=== PATIENT | female | born 1995 | race Caucasian/White ===

== ENCOUNTER 2019-02-11 16:11 | Observation (INO) ==
[2019-02-11 17:01] LABS: Bilirubin,Urine Negative (Negative); Blood,Urine Negative (Negative); Clarity,Urine Cloudy (Clear); Color,Urine Yellow (Yellow); Glucose,Urine (UA) Normal (Normal); Ketones,Urine Negative (Negative); Leukocyte Esterase,Urine Negative (Negative); Nitrite,Urine Negative (Negative); Protein,Urine Negative (Neg-Trace); Specific Gravity,Urine 1.016 (1.010-1.025); Urobilinogen,Urine Normal (Normal)
--- NOTE | 2019-02-11 17:03 | Emergency Department Note ---
Disposition Clinical Impression: Ectopic Disposition: Admitted As Inpatient Condition: Fair Forms: ED Satisfaction Letter, Work/School Release Time of Disposition: 17:03 Female Urogenital HPI - General Chief complaint: ED Abdominal Pain Stated complaint: Ectopic+ Dr. Bhatt Time Seen by Provider: 02/11/19 16:55 Source: patient Limitations: no limitations Nursing Notes Reviewed: Yes Vital Signs Reviewed: Yes - History of Present Illness HPI Narrative: Patient states that she is here because she has an ectopic and was sent to the ER to be admitted although she thinks that maybe she was just supposed to go directly upstairs to surgery but was told that she should go to the ER in case something bad happened. She denies any symptoms currently she states that she is being followed by OB for some spotting in early , and quantitative hCG levels that have not been going up like they are supposed to and today she had an ultrasound in the office which showed a ectopic and was sent here for surgery. - Related Data Home Medications Medication Instructions Recorded Confirmed No Known Home Drugs 02/11/19 02/11/19 Allergies Allergy/AdvReac Type Severity Reaction Status Date / Time No Known Allergies Allergy Verified 02/11/19 16:13 All systems ED: reviewed and negative except as stated. Past Medical History - Past Medical History Medical history: Reports: no medical history Surgical history: Reports: other Psychiatric history: Reports: no psych history - Social History Smoking Status: Current every day smoker Smokeless Tobacco Status: No Alcohol use: Reports: none Drug use: Reports: none Physical Exam - General Limitations: no limitations General appearance: alert, in no apparent distress - Head Head exam: atraumatic - Other Other exam information: A brief cursory examination shows the patient be sitting upright in the bed smiling talking with her significant other with the nursing staff with no chief complaints, vital signs were reviewed and are within acceptable limits. Neurologic exam was nonfocal, moving all 4 extremities spontaneous a normal speech. No complaints. Course Vital Signs Temperature 98.9 F 02/11/19 16:13 Pulse Rate 60 02/11/19 16:13 Respiratory Rate 15 02/11/19 16:13 Blood Pressure 129/81 02/11/19 16:13 O2 Sat by Pulse Oximetry 98 02/11/19 16:13 Temperature 98.9 F 02/11/19 16:13 Pulse Rate 60 02/11/19 16:13 Respiratory Rate 15 02/11/19 16:13 Blood Pressure 129/81 02/11/19 16:13 O2 Sat by Pulse Oximetry 98 02/11/19 16:13 Oxygen Delivery Oxygen Delivery Room Air Urogenital-Female - MDM Narrative Medical decision making narrative: I was able to review this patient's chart, she has documentation from [facility] from today that did show a ultrasound with a right-sided ectopic without any evidence of rupture, the charting from Dr. Bhatt states that he specifically spoke with the inpatient [facility] doctor Evon, who accepted this patient for direct admission, and it is unclear as to why the patient ended up in the emergency department. The patient states that she just came here because she was told to come here in case something bad happened on her way in. She has no current symptoms. We did place an IV, I spoke with Namita Mello nurse practitioner, who states that this patient can be sent directly to , and they will take care of the patient. Basic laboratory studies were sent. Patient taken to for further management. Please note very limited examination was performed as the patient was hemodynamically normal, with no acute complaints and I was able to review her chart, and contact OB who has accepted this patient already as direct admission.
[2019-02-11 17:05] LABS: Bacteria,Urine None Seen per hpf (None-Few); Hyaline Casts,Urine None Seen per lpf (None-Few); RBC,Urine 0-3 per hpf (0-3); Squamous Epithelial Cell,Urine None Seen per lpf (None-Few); WBC,Urine 0-3 per hpf (0-3)
[2019-02-11 17:10] LABS: White Blood Count 6.5 K/mcL (4.3-11.1)
[2019-02-11 17:11] LABS: Basophils % 0.3 %; Eosinophils # 0.1 K/mcL (0.0-0.6); Eosinophils % 2.1 %; Hematocrit 38.9 % (35.3-44.9); Immature Granulocytes % 0.3 % (0-4); Lymphocytes # 1.8 K/mcL (0.6-4.6); Lymphocytes % 28.1 %; Mean Corpuscular HGB Conc 33.4 g/dL (31.6-35.5); Mean Corpuscular Hemoglobin 29.3 pg (28.0-33.3); Mean Corpuscular Volume 87.8 fL (83.0-100.0); Mean Platelet Volume 9.4 fL (9.4-12.4); Monocytes # 0.5 K/mcL (0.0-1.3); Monocytes % 8.3 %; Platelet Count 228 K/mcL (140-400); Red Blood Count 4.43 M/mcL (3.82-4.97); Red Cell Distribution Width 11.9 % (11.5-14.5); Segmented Neutrophils % 60.9 %
[2019-02-11 17:28] LABS: BUN/Creatinine Ratio 18 (6-26); Blood Urea Nitrogen 10 mg/dL (6-20); Calcium 9.5 mg/dL (8.6-10.3); Carbon Dioxide 24 mEq/L (23-29); Chloride 107 mEq/L (98-107); Glucose 91 mg/dL (70-105); Osmolality,Calculated 285 (280-300); Potassium 4.1 mEq/L (3.5-5.1); Sodium 138 mEq/L (136-145); eGFR For African Americans > 60 (> 60); eGFR For Non-African Americans > 60 (> 60)
[2019-02-11] MEDS ORDERED: Acetaminophen 325 MG TABLET PO PRN (17:57)
[2019-02-11] MEDS ORDERED: Ringers Solution, Lactated 1,000 ML IVC SCH (18:00)
--- NOTE | 2019-02-11 18:01 | OB/GYN History & Physical ---
Date of Encounter: 02/11/19 Time of Encounter: 17:58 Assessment and Plan (1) Ectopic Current visit: Yes Status: Acute Patient will be made nothing by mouth after midnight for surgical intervention a.m. Qualifiers: Location of ectopic : tubal Intrauterine status: without intrauterine Laterality: right Qualified Code(s): O00.101 - Right tubal without intrauterine History of Present Illness HPI: Ms. Lilly is a 23 year old female 3 para 2 unknown last missed her period was sent in from the office secondary to right ectopic identified during an ultrasound today. Patient's had 3 positive test at home and had some bleeding her quantitative hCGs initially went up and started to come down they had a come in for viability ultrasound. Ultrasound today shows for this is to be a pseudo-sac within the endometrium with irregular contour however within the right adnexa appears to be an ectopic with a pole measuring out at 6 weeks and 5 days no cardiac activity noted. Patient is asymptomatic is having no pain no bleeding no cramping. Case was discussed with Dr. Argueta who recommended patient be admitted for observation and schedule for a laparoscopic surgery tomorrow. Patient to get some blood work because she came to the emergency room she is also stable as is her vitals. Did inform the patient we will go ahead and let her eat since she is asymptomatic nothing to eat or drink after midnight if she becomes symptomatically the night we will do the surgery tonight. Past Med Surg Social Fam HX - Past Medical History Source: patient, old records reviewed Medical history: no medical history Additional medical history: History of hyperprolactinemia Psychiatric history: no psych history - Past Surgical History Surgical History: other Additional surgical history: wisdom teeth - Social History Smoking Status: Current every day smoker Smokeless Tobacco Status: No Alcohol use: none Drug use: none Occupational status: employed Current living situation: Home - Independent Activity Level: Independent ambulation Recent Out of Country Travel Within the Last 8 Weeks: No Exposure or Possible Exposure to Illness During Travel: No - Family History Father Family Member Ethnicity: Non- Living Status: Hx Family Cardiac Disorders: No Hx Family Respiratory Disorders: No Hx Family Cancer: Yes Hx Family GI Disorders: No Hx Family Endocrine Disorder: No Hx Family Neuromuscular Disorders: No Hx Family Neurologic Disorders: No Hx Family HEENT Disorders: No Hx Family Autoimmune Disorders: No - Additional Family History Additional family history: Family history noncontributory Obstetrical History - Pregnancies : 3 Para: 2 Term: 2 Livin Medications and Allergies No Known Home Drugs 02/11/19 [History] Allergy/AdvReac Type Severity Reaction Status Date / Time No Known Allergies Allergy Verified 02/11/19 16:13 Review of System OB All systems PM: reviewed and no additional remarkable complaints except as state d Exam - Vital Signs Vital signs: Initial Vital Signs Temp Pulse Resp BP Pulse Ox 98.9 F 60 15 129/81 98 02/11/19 16:13 02/11/19 16:13 02/11/19 16:13 02/11/19 16:13 02/11/19 16:13 - Constitutional Constitutional: well developed, well nourished, no acute distress, average body habitus - HEENT HEENT: EOMI, PERRL, Mucus Membranes Moist - Neck Neck exam: full ROM - Lungs Respiratory exam: CTAB - Cardiovascular Cardiovascular exam: RRR - Abdomen Abdomen: Present: bowel sounds normal (abd nontender to palpation no rebound tenderness no guarding) Results Result Diagrams: 02/11/19 16:46 02/11/19 16:46 Abnormal lab results Creatinine 0.57 mg/dL (0.60-1.20) L 02/11/19 16:46 Beta HCG, Quant 9973 mIU/mL (Less than 5) H 02/11/19 16:46 Urine Clarity Cloudy (Clear) A 02/11/19 16:42 All other labs normal. - VTE Reasons for not Prescribing Prophylaxis: Treatment not Indicated - Low risk for VTE
[2019-02-12] MEDS ORDERED: Bupivacaine/EPI 1:200k 0.25%PF 10 ML VIAL INFILT ONE (16:06)
[2019-02-12] MEDS ORDERED: *HR* FentaNYL (PF) 100 MCG/2 ML VIAL ONE (16:16)
[2019-02-12] MEDS ORDERED: *HR* Rocuronium Bromide 50 MG/5 ML VIAL ONE (16:16)
[2019-02-12] MEDS ORDERED: Lidocaine -MPF 2% 2 ML VIAL ONE (16:16)
[2019-02-12] MEDS ORDERED: *HR* Midazolam HCl 2 MG/2 ML VIAL ONE (16:16)
[2019-02-12] MEDS ORDERED: *HR* Succinylcholine 200 MG/10 ML VIAL IVP ONE (16:16)
[2019-02-12] MEDS ORDERED: *HR* Propofol 200 MG/20 ML VIAL IVP ONE (16:17)
[2019-02-12] MEDS ORDERED: Dexamethasone 4 MG/ML VIAL ONE (16:19)
[2019-02-12] MEDS ORDERED: Ondansetron 4 MG/2 ML VIAL ONE (16:19)
--- NOTE | 2019-02-12 16:21 | Anesthesia Evaluation PreOp ---
Date of Encounter: 02/12/19 Time of Encounter: 16:20 - Past History Planned Operation: R-salpingectomy re: ectopic Cardiac History: Denies any Significant Hx Pulmonary History: Smoker INSURANCE OFFICE SUPERVISOR History: Denies Any Significant HX Other Medical History: Denies Any Significant HX Anesthesia History: No Prior Anesthetic Complications, Past Anesthesia : Yes Test: Positive (Non-viable ectopic R-salpinx confirmed by U/s) Alcohol Use: none Drug use: none Medications and Allergies No Known Home Drugs 02/11/19 [History] Allergy/AdvReac Type Severity Reaction Status Date / Time No Known Allergies Allergy Verified 02/11/19 16:13 - Meds/Allergy Pre-op Review Medications Reviewed: Yes Allergies Reviewed: Yes Beta Blockers on Current Med List: No Anesthesia Results - Labs 02/11/19 16:46 02/11/19 16:46 Anesthesia Exam Vital Signs Temp Pulse Pulse Resp BP Pulse Ox 02/12/19 16:04 98.4 F 61 60 16 103/59 100 02/12/19 08:31 98.3 F 76 16 108/77 98 02/12/19 07:56 16 02/12/19 05:50 98.4 F 67 15 92/54 98 02/11/19 20:00 98.2 F 76 14 121/65 99 02/11/19 18:07 16 02/11/19 17:29 99.2 F 79 14 111/69 99 Intake and Output 02/12/19 02/12/19 02/12/19 07:59 15:59 23:59 Output Total 1000 / 2650 800 / 2650 850 / 2650 Balance -1000 / -2650 -800 / -2650 -850 / -2650 Output: Urine 1000 / 2650 800 / 2650 850 / 2650 Other: # Voids 3 Height: 5'11 Weight: 185# BMI = 26 NPO (# of Hours): MNoc - HEENT Pupil (Motor): Pupils equal, EOMI Mallampati: II Teeth: Normal Oral Opening: Greater than 3 - INSURANCE OFFICE SUPERVISOR LOC: Oriented INSURANCE OFFICE SUPERVISOR Motor: Normal RUE, Normal LUE, Normal RLE, Normal LLE, Normal Face INSURANCE OFFICE SUPERVISOR Sensory: Normal: RUE, LUE, RLE, LLE, Face - Cardiac Rhythm: Regular Murmur: None - Pulmonary Breath Sounds: bilateral Clear Respiratory Effort: Symmetrical Anesthesia Assess/Plan ASA Score: 2 Level of consciousness: Cooperative, Oriented, Tranquil Anesthetic Plan: General Monitoring Plan: Standard Monitors Recovery Plan: PACU Anes Supervising Prov Stmt: Pt seen/evaluated, R&B discussed, questions answered and consent obtained. Ciara Araiza MD
[2019-02-12] MEDS ORDERED: Famotidine 20 MG/2 ML VIAL ONE (16:26)
[2019-02-12] MEDS ORDERED: Acetaminophen IV 1,000 MG/100 ML INFUS..BTL ONE (16:26)
[2019-02-12] MEDS ORDERED: Neostigmine Methylsulfate 3 MG/3 ML SYRINGE ONE (17:15)
[2019-02-12] MEDS ORDERED: Ketorolac 30 MG/ML VIAL ONE (17:15)
[2019-02-12] MEDS ORDERED: *HR* HYDROMORPHONE 2 MG/ML VIAL ONE (17:28)
--- NOTE | 2019-02-12 17:37 | OB/GYN Procedure Note ---
OB-MARKETING ANALYST: Procedure - Diagnosis Date of procedure: 02/12/19 Pre-op diagnosis: Ectopic Post-op diagnosis: same - Procedure Procedure: Diag Laparoscopy, right salpingectomy, removal of ectopic Surgeon: Fatimah Gottlieb Was there an physical therapy assistant present: Yes Combination Building Inspector: Kelley Benites Anesthesia Type: General Estimated blood loss (cc): 0 Fluids: crystalloid Procedure Complications: none Specimens collected: right tube, ectopic Disposition: same day Findings: 6 week ectopic occupying most of the right fallopian tube up to the cornua Narrative: The patient was taken to the OR where general anesthesia was easily obtained. The patient was then prepped and draped in a sterile fashion and placed in dorsal lithotomy position. A sponge on a spongestick was placed into the vagina for uterine manipulation. Attention was then turned to the abdomen where an incision was made with a blade in-between the umbilical folds after 1% lidocaine with Epi was injected. With the abdomen tented, a 5mm trocar was advanced into the abdomen with the camera after which pneumoperitoneum was started. After adequate pneumoperiteneum was achieved, the laparoscope camera was reinserted and provided good visualization of the abdomen. The abdomen was explored and the uterus, ovaries and tubes all looked normal. At this point, two other trocars were placed in the right lower quadrant and left lower quadrant under direct visualization, 12mm and 5mm resp. With the help of the 5mm Endoseal device, the right fallopian tube along with the ectopic was removed. Hemostasis was assured. Abdirahman agent was placed on the surgical bed. The specimens were subsequently removed through the 12mm port and sent to pathology. The pedicle was reinspected for hemostasis, which was noted. Pictures were taken. All ports were removed under direct visualization. The laparoscope was removed. The incisions were approximated with dermabond and steristrips. The patient tolerated the procedure well and was taken to recovery in stable condition.
[2019-02-12] MEDS ORDERED: *HR* HYDROmorphone (PF) 1 MG/ML SYRINGE IVP PRN (17:53)
[2019-02-12] MEDS ORDERED: *HR* Promethazine 25 MG/ML VIAL IVP PRN (17:56)
[2019-02-12] MEDS ORDERED: *HR* OxyCODONE Immed Rel 5 MG TABLET PO PRN (17:56)
[2019-02-12] MEDS ORDERED: *HR* OxyCODONE/APAP 5/325 TABLET PO PRN (17:57)
--- NOTE | 2019-02-12 18:01 | Discharge Summary ---
Date of Encounter: 02/12/19 Time of Encounter: 17:59 - Discharge Diagnosis (1) Ectopic Priority: Primary Status: Acute Comments: 23 y/o s/p diag lap, right salpingectomy (removal of ectopic ), patient is doing well, ambulating, tolerating PO, ok for discharge Qualifiers: Location of ectopic : tubal Intrauterine status: without intrauterine Laterality: right Qualified Code(s): O00.101 - Right tubal without intrauterine - Discharge Medications Prescriptions: New Ibuprofen [Motrin] 600 mg PO Q6HR PRN #60 tab PRN Reason: Pain OxyCODONE/APAP 5/325 [Percocet 5/325 MG] 1 each PO Q6HR PRN 7 Days #15 tablet PRN Reason: post op Pain OxyCODONE/APAP 5/325 [Percocet 5/325 MG] 1 each PO Q6HR PRN 7 Days #15 tablet PRN Reason: post op pain Home Medications: Ibuprofen [Motrin] 600 mg PO Q6HR PRN #60 tab 02/12/19 [Rx] OxyCODONE/APAP 5/325 [Percocet 5/325 MG] 1 each PO Q6HR PRN 7 Days #15 tablet 02/12/19 [Rx] OxyCODONE/APAP 5/325 [Percocet 5/325 MG] 1 each PO Q6HR PRN 7 Days #15 tablet 02/12/19 [Rx] Allergies/Adverse Reactions: Allergy/AdvReac Type Severity Reaction Status Date / Time No Known Allergies Allergy Verified 02/11/19 16:13 Data Procedures and tests throughout hospitalization: Laboratory Tests 02/11/19 02/11/19 02/11/19 16:42 16:46 16:46 WBC 6.5 RBC 4.43 Hgb 13.0 Hct 38.9 MCV 87.8 MCH 29.3 MCHC 33.4 RDW 11.9 Plt Count 228 MPV 9.4 Immature Gran % 0.3 Seg Neutrophils % 60.9 Lymphocytes % 28.1 Monocytes % 8.3 Eosinophils % 2.1 Basophils % 0.3 Neutrophils # 4.0 Lymphocytes # 1.8 Monocytes # 0.5 Eosinophils # 0.1 Basophils # 0.0 APTT 32.0 Sodium Potassium Chloride Carbon Dioxide BUN Creatinine Est GFR ( Amer) Est GFR (Non-Af Amer) BUN/Creatinine Ratio Glucose Calculated Osmolality Calcium Beta HCG, Quant Urine Color Yellow Urine Clarity Cloudy A Urine pH 7.0 Ur Specific Vincent 1.016 Urine Protein Negative Urine Glucose (UA) Normal Urine Ketones Negative Urine Blood Negative Urine Nitrite Negative Urine Bilirubin Negative Urine Urobilinogen Normal Ur Leukocyte Esterase Negative Urine Microscopic RBC 0-3 Urine Microscopic WBC 0-3 Ur Squamous Epith Cells None Seen Urine Bacteria None Seen Hyaline Casts None Seen Ur Culture Indicated? NO Blood Type Antibody Screen 02/11/19 02/11/19 16:46 16:46 WBC RBC Hgb Hct MCV MCH MCHC RDW Plt Count MPV Immature Gran % Seg Neutrophils % Lymphocytes % Monocytes % Eosinophils % Basophils % Neutrophils # Lymphocytes # Monocytes # Eosinophils # Basophils # APTT Sodium 138 Potassium 4.1 Chloride 107 Carbon Dioxide 24 BUN 10 Creatinine 0.57 L Est GFR ( Amer) > 60 Est GFR (Non-Af Amer) > 60 BUN/Creatinine Ratio 18 Glucose 91 Calculated Osmolality 285 Calcium 9.5 Beta HCG, Quant 9973 H Urine Color Urine Clarity Urine pH Ur Specific Vincent Urine Protein Urine Glucose (UA) Urine Ketones Urine Blood Urine Nitrite Urine Bilirubin Urine Urobilinogen Ur Leukocyte Esterase Urine Microscopic RBC Urine Microscopic WBC Ur Squamous Epith Cells Urine Bacteria Hyaline Casts Ur Culture Indicated? Blood Type A POSITIVE Antibody Screen NEGATIVE Date of admission: 02/11/19 17:18 Primary care physician: Nikita Denis DO - Patient Status Disposition: Home, Self-Care Condition: Good Functional capacity at discharge: independent ambulation Overall status at discharge: patient is progressing back to baseline - Discharge Instructions Follow Up With: Nikita Denis DO [Primary Care Provider] - Hospital Course GAS INSPECTOR Time Attestation: Total time spent providing and/or coordinating discharge services: Exam - Constitutional Vitals: Temp Pulse Resp BP Pulse Ox 98.4 F 60 16 103/59 100 02/12/19 16:04 02/12/19 16:04 02/12/19 16:04 02/12/19 16:04 02/12/19 16:04 General appearance IM: A&O X 3 - Respiratory Respiratory exam: Present: CTAB - Cardiovascular Cardiovascular exam IM: Present: RRR - GI/Abdominal GI/Abdominal exam IM: soft Incision: normal - VTE Reasons for not Prescribing Prophylaxis: Treatment not Indicated - Low risk for VTE
--- NOTE | 2019-02-12 18:11 | Anesthesia Evaluation Post Op ---
Date of Encounter: 02/12/19 Time of Encounter: 18:09 - Vital Signs Vital Signs: Vital Signs/O2 Sat, Most Current Temp Pulse Resp BP Pulse Ox 98.6 F 52 14 107/67 94 02/12/19 17:50 02/12/19 18:00 02/12/19 18:00 02/12/19 18:00 02/12/19 18:00 - Lungs Lungs: Clear Ascult./Percussion - Airway Airway: Non-obstructed - Cardiovascular Regular Rate - Mental Status Mental Status: Alert & Oriented, Answers Appropriately - Pain Pain Scale: 2 Pain Scale used: Numeric (1 - 10) - Nausea Vomiting Nausea Vomiting: Not Present - Hydration Hydration: Ice chips, Has not voided Notes: 02/12/19 18:10 resting quietly without complaints - Discharge PostOp Status: Transfer Patient to floor
[2019-02-12 21:23] VITALS: BP 104/57
== END 2019-02-12 21:53 | disposition home or self-care (01) ==
LOC: EMEROOARM 16:11 → 1NENUOBS 16:11
PROVIDERS: ADMIT Student in an Organized Health Care Education/Training Program; ATTEND Student in an Organized Health Care Education/Training Program

== ENCOUNTER 2021-07-06 10:07 | Inpatient (IN) ==
[~2021-07-06 10:07] MED LIST: Famotidine 20 MG/2 ML VIAL IVP PRN; Metoclopramide 10 MG/2 ML VIAL IVP PRN; Naloxone 0.4 MG/ML INJ IVP PRN
[2021-07-06 11:19] LABS: Basophils % 0.3 %; Eosinophils # 0.1 K/mcL (0.0-0.6); Eosinophils % 0.6 %; Hematocrit 33.6 % (35.3-44.9); Hemoglobin 11.4 g/dL (11.5-15.4); Immature Granulocytes % 0.3 % (0-4); Lymphocytes # 1.7 K/mcL (0.6-4.6); Lymphocytes % 17.5 %; Mean Corpuscular HGB Conc 33.9 g/dL (31.6-35.5); Mean Corpuscular Hemoglobin 28.8 pg (28.0-33.3); Mean Corpuscular Volume 84.8 fL (83.0-100.0); Monocytes # 0.6 K/mcL (0.0-1.3); Neutrophils # 7.2 K/mcL (1.6-8.9); Platelet Count 232 K/mcL (140-400); Red Blood Count 3.96 M/mcL (3.82-4.97); Red Cell Distribution Width 12.6 % (11.5-14.5); Segmented Neutrophils % 75.3 %; White Blood Count 9.5 K/mcL (4.3-11.1)
[2021-07-06] MEDS ORDERED: miSOPROStoL 25 MCG TABLET PO PRN (11:27)
[2021-07-06] MEDS ORDERED: Azithromycin 500 MG in 0.9 % Sodium Chloride 250 ML IVPB PRN (11:32)
[2021-07-06] MEDS ORDERED: Ondansetron 4 MG/2 ML VIAL IVP PRN (11:32)
[2021-07-06] MEDS ORDERED: *HR* Nalbuphine 10 MG/ML AMPUL IV PRN (11:32)
[2021-07-06] MEDS ORDERED: Ringers Solution, Lactated 1,000 ML IVC SCH (11:45)
[2021-07-06 11:47] LABS: Alanine Aminotransferase 15 Units/L (7-52); Aspartate Amino Transferase 15 Units/L (13-39); BUN/Creatinine Ratio 10 (6-26); Blood Urea Nitrogen 5 mg/dL (6-20); Lactate Dehydrogenase 90 Units/L (140-271); Uric Acid 5.5 mg/dL (2.3-7.6); eGFR For African Americans > 60 (> 60); eGFR For Non-African Americans > 60 (> 60)
[2021-07-06 11:49] LABS: Influenza A PCR Negative (Negative); Influenza B PCR Negative (Negative); Resp. Syncytial Virus PCR Negative (Negative)
[2021-07-06 11:55] LABS: SARS-CoV-2 by PCR (In House) Negative (Negative)
[2021-07-06 12:48] LABS: Amphetamine Screen,Urine Negative ng/mL (Cutoff=1000); Barbiturate Screen,Urine Negative ng/mL (Cutoff=200); Benzodiazepines Screen,Urine Negative ng/mL (Cutoff=200); Cannabinoid Screen,Urine Negative ng/mL (Cutoff = 50); Cocaine Screen,Urine Negative ng/mL (Cutoff= 300); Opiate Screen,Urine Negative ng/mL (Cutoff=300); Phencyclidine Screen,Urine Negative ng/mL (Cutoff=25)
[2021-07-06 12:49] LABS: Protein/Creatinine Ratio,Urine 0.14 mg/mg (0.00-0.20)
[2021-07-06] MEDS ORDERED: Ropivacaine/PF 0.2% 20 ML VIAL EP ONE (14:54)
[2021-07-06] MEDS ORDERED: *HR* FentaNYL (PF) 100 MCG/2 ML VIAL EP ONE (14:54)
[2021-07-06] MEDS ORDERED: EPHEDrine 50 MG/ML VIAL IVP PRN (14:54)
[2021-07-06] MEDS ORDERED: Epidural Premix (fent/bupiv) 110 ML EP SCH (15:00)
[2021-07-06] MEDS ORDERED: *HR* FentaNYL (PF) 100 MCG/2 ML VIAL ONE (15:24)
[2021-07-06] MEDS ORDERED: Ropivacaine/PF 0.2% 20 ML VIAL ONE (15:24)
[2021-07-06] MEDS ORDERED: Oxytocin 20 units/ LR 1000 mL 20 UNIT/1,000 ML BAG IVC SCH (18:45)
[2021-07-07] MEDS ORDERED: Measles/Mumps/Rubella Vacc 0.5 ML VIAL SQ PRN (00:45)
[2021-07-07] MEDS ORDERED: Benzocaine/Menthol 56 GM AEROSOL SPRAY TP PRN (00:45)
[2021-07-07] MEDS ORDERED: Lanolin 7 G OINT...G. TP PRN (00:45)
[2021-07-07] MEDS ORDERED: Ondansetron ODT 4 MG TAB.RAPDIS SL PRN (00:45)
[2021-07-07] MEDS ORDERED: Oxytocin 20 units/ LR 1000 mL 20 UNIT/1,000 ML BAG IVC SCH (00:45)
[2021-07-07] MEDS: Acetaminophen 325 MG TABLET PO SCH ×3 (02:35→17:10)
[2021-07-07] MEDS: Ibuprofen 600 MG TABLET PO SCH ×3 (02:35→17:09)
[2021-07-07 02:36] VITALS: O2SAT 99
[2021-07-07] MEDS ORDERED: Prenatal Vit/FA 1 EACH TABLET PO SCH (09:00)
[2021-07-07 20:03] VITALS: PULSE 65
[2021-07-07 20:06] VITALS: BP 116/79; TEMP 97.4
== END 2021-07-07 22:34 | disposition home or self-care (01) | DRG 807 ==
LOC: 1NENULAB → 1NENUOBS 07-07 00:30
PROVIDERS: ADMIT Registered Nurse; ATTEND Registered Nurse